=== PATIENT | female | born 1970 | race Caucasian/White ===

== ENCOUNTER 2021-01-18 12:41 | Emergency (ER) | payer OTHER ==
[~2021-01-18] VITALS: Ht 167.6 cm; Wt 55.3 kg
[~2021-01-18 12:41] MED LIST: CARISOPRODOL350 MG PO; DIAZEPAM5 MG PO; FENTANYL1 EAC2 TD; FENTANYL1 EAC3 TD; HYDROCODON-ACE1 EA11 PO; HYDROCODON-ACE1 EA14 PO; ONDANSETRON HCL8 MG PO; SERTRALINE HCL100 MG PO; TOPIRAMATE100 MG PO
[2021-01-18] MEDS ORDERED: BUPRENORPHINE HC2 MG SL (13:11)
[2021-01-18] MEDS ORDERED: OLANZAPINE5 MG PO (13:11)
[2021-01-18] MEDS ORDERED: DIAZEPAM2 MG PO (13:12)
[2021-01-18] MEDS ORDERED: LATUDA80 MG PO (13:12)
[2021-01-18] MEDS ORDERED: METHOCARBAMOL500 MG PO (13:12)
[2021-01-18] MEDS ORDERED: CHLORPROMAZINE50 MG PO (13:13)
[2021-01-18] MEDS ORDERED: LATUDA20 MG PO (13:13)
--- OUTSIDE RECORDS SUMMARY | 2021-01-18 13:48 | XMS ---
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 Hank has no Care Guidelines for this patient. Hannah VISIT COUNT (12 MO.) 1 [facility] TOTAL 1 NOTE: Visits indicate total known visits. ED/UCC VISIT TRACKING (12 MO.) 01/18/2021 12:42 [facility] [place] TYPE: Emergency COMPLAINT: - ANKLE PAIN/SWELLING INPATIENT VISIT TRACKING (12 MO.) No inpatient visits to display in this time frame [email or web address]
--- NOTE | 2021-01-19 12:46 | EKG ---
[facility] [address] [place], [place] [address] Signed Sinus bradycardia Otherwise normal ECG No previous ECGs available Confirmed by DMITRY VELA DO ([id number]) on 01/19/2021 12:45:57 PM Electronically Signed By: DMITRY VELA DO 01/19/21 1246 PATIENT NAME: TAY MUÑIZ Electrocardiogram DATE OF : 74 PHYSICIAN: DMITRY VELA DO REPORT #: [id number] REPORT IS CONFIDENTIAL AND NOT TO BE RELEASED WITHOUT AUTHORIZATION
== END 2021-01-18 18:24 | disposition home or self-care (01) ==
LOC: ED 12:41
DX: R60.0 Localized edema (principal); M19.90 Unspecified osteoarthritis, unspecified site; M79.7 Fibromyalgia; F17.200 Nicotine dependence, unspecified, uncomplicated; Z79.899 Other long term (current) drug therapy
CPT/HCPCS: 73610; 80053; 85025; 93005; 93010; 93970; 99284-25

== ENCOUNTER 2021-12-08 00:59 | Emergency (ER) | payer OTHER ==
[~2021-12-08] VITALS: Ht 167.6 cm; Wt 55.3 kg
[~2021-12-08 00:59] MED LIST changes: +BUPRENORPHINE HC2 MG SL; +CHLORPROMAZINE50 MG PO; +DIAZEPAM2 MG PO; +LATUDA20 MG PO; +LATUDA80 MG PO; +METHOCARBAMOL500 MG PO; +OLANZAPINE5 MG PO
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
[2021-12-08] MEDS ORDERED: CLONAZEPAM1 MG PO (01:12)
[2021-12-08] MEDS ORDERED: TOPIRAMATE100 MG PO (01:12)
== END 2021-12-08 02:39 | disposition home or self-care (01) ==
LOC: ED 00:59
DX: F22 Delusional disorders (principal); F17.200 Nicotine dependence, unspecified, uncomplicated; Z79.899 Other long term (current) drug therapy
CPT/HCPCS: 36415; 80053; 81001; 84443; 84703; 85025; 99285; G0480